=== PATIENT | male | born 1950 | race African-American/Black ===

== ENCOUNTER 2021-09-03 14:15 | Outpatient (CLI) | payer MEDICARE ==
--- NOTE | 2021-09-03 14:51 | XRay Report ---
CHEST 2 VIEWS INDICATION / CLINICAL INFORMATION: COUGH. COMPARISON: None available. FINDINGS: SUPPORT DEVICES: None. HEART / MEDIASTINUM: No significant abnormality. LUNGS / PLEURA: No significant pulmonary or pleural abnormality. No pneumothorax. ADDITIONAL FINDINGS: No significant additional findings. IMPRESSION: 1. No acute findings. Signer Name: Eze Moy MD Signed: 09/03/2021 2:46 PM Workstation Name: [id number]
== END 2021-09-03 14:16 | disposition home or self-care (01) ==
LOC: XRAY 14:15 → LAB 14:15 → XRAY 14:16
PROVIDERS: ATTEND Internal Medicine
DX: R05.9 Cough, unspecified (principal)
CPT/HCPCS: 71046